=== PATIENT | male | born 1950 | race Caucasian/White ===

== ENCOUNTER 2016-05-30 12:04 | Inpatient (IN) | payer MEDICARE ==
[~2016-05-30] VITALS: Ht 177.8 cm; Wt 76.0 kg
[2016-05-30] MEDS ORDERED: SODIUM CHLORIDE 0.9% 1,000 ML IV ONE (13:19)
[2016-05-30] MEDS ORDERED: ONDANSETRON 2MG/ML, 2ML IVPush ONE (13:30)
[2016-05-30] MEDS ORDERED: SODIUM CHLORIDE 0.9% 1,000ML IVBOLUS ONE (13:30)
[2016-05-30] MEDS ORDERED: SODIUM CHLORIDE FLUSH 10ML SYR IVF ONE (13:30)
[2016-05-30 13:54] LABS: HEMOGLOBIN 14.7 g/dL (13.7-18.0)
[2016-05-30 14:00] LABS: BLOOD UREA NITROGEN 7 mg/dL (7-18)
[2016-05-30 14:03] LABS: ASPARTATE AMINO TRANSFERASE 22 U/L (15-37)
[2016-05-30] MEDS ORDERED: ONDANSETRON 2MG/ML, 2ML ONE ×2 (14:37→19:43)
[2016-05-30] MEDS ORDERED: HYDROmorphone 1 MG/ML, 1ML ONE ×2 (14:37→15:18)
[2016-05-30] MEDS: HYDROmorphone 1 MG/ML, 1ML IVPush PRN ×2 (14:43→16:01)
[2016-05-30] MEDS ORDERED: OMNIPAQUE 350 MG/ML, 100ML BOTTLE ONE (15:53)
[2016-05-30] MEDS ORDERED: METRONIDAZOLE PMX 500MG/100ML 100 ML IV ONE (16:30)
[2016-05-30] MEDS ORDERED: AMPICILLIN/SULBACTAM 3 GM in SODIUM CHLORIDE 0.9% 100 ML IV ONE (16:30)
[2016-05-30] MEDS ORDERED: LOSA25TA5 PO (16:31)
[2016-05-30] MEDS ORDERED: METRONIDAZOLE PMX 500MG/100ML 100 ML ONE (16:33)
[2016-05-30] MEDS ORDERED: TERA5CAP3 PO (16:43)
[2016-05-30] MEDS ORDERED: ATOR80TA75 PO (16:43)
[2016-05-30] MEDS ORDERED: ACETAMINOPHEN 325 MG TABLET PO PRN ×3 (18:00→22:30)
[2016-05-30] MEDS ORDERED: HYDROmorphone 1 MG/ML, 1ML IV PRN ×2 (18:00→20:00)
[2016-05-30] MEDS ORDERED: hydrALAzine 20 MG/ML, 1ML IV PRN ×2 (18:00→20:00)
[2016-05-30] MEDS ORDERED: ONDANSETRON 2MG/ML, 2ML IVPush PRN ×3 (18:00→22:30)
[2016-05-30] MEDS ORDERED: FENTANYL PF 100 MCG/2ML IV PRN ×2 (18:00→20:00)
[2016-05-30] MEDS ORDERED: OXYcodone 5 MG/5 ML ORAL.SOL UDC PO PRN ×2 (18:00→20:00)
[2016-05-30] MEDS ORDERED: PROMETHAZINE 25 MG/ML, 1ML IV PRN ×2 (18:00→20:00)
[2016-05-30] MEDS ORDERED: METOPROLOL 1 MG/ML, 5ML IV PRN ×2 (18:00→20:00)
[2016-05-30] MEDS ORDERED: EPHEDRINE 50 MG/ML, 1ML IVPush PRN ×2 (18:00→20:00)
[2016-05-30] MEDS ORDERED: LABETALOL 5MG/ML, 20ML IV PRN ×2 (18:00→20:00)
[2016-05-30] MEDS ORDERED: FENTANYL PF 250 MCG/5ML ONE ×2 (19:27→20:28)
[2016-05-30] MEDS ORDERED: BUPIVACAINE/PF-EPI 0.5% 1:200K ONE (19:30)
[2016-05-30] MEDS ORDERED: NEOSTIGMINE 1 MG/ML, 10ML ONE (19:43)
[2016-05-30] MEDS ORDERED: ROCURONIUM 10 MG/ML ONE (19:43)
[2016-05-30] MEDS ORDERED: PROPOFOL 10 MG/ML, 50ML ONE (19:43)
[2016-05-30] MEDS ORDERED: SUCCINYLCHOLINE 20 MG/ML, 10ML ONE (19:43)
[2016-05-30] MEDS ORDERED: GLYCOPYRROLATE 0.2MG/1ML ONE (19:43)
[2016-05-30] MEDS ORDERED: LIDOCAINE 1%, 20ML ONE (19:43)
[2016-05-30] MEDS ORDERED: KETOROLAC 30 MG/1 ML ONE (19:43)
[2016-05-30] MEDS ORDERED: MAGNESIUM SULFATE 1 GM/2 ML ONE (19:59)
[2016-05-30] MEDS ORDERED: METOCLOPRAMIDE 5 MG/ML, 2ML IV PRN (20:00)
[2016-05-30] MEDS ORDERED: FENTANYL PF 100 MCG/2ML ONE (20:52)
[2016-05-30] MEDS ORDERED: ACETAMINOPHEN 650 MG/20.3 ML UDC ONE (20:52)
[2016-05-30] MEDS ORDERED: OXYcodone 5 MG/5 ML ORAL.SOL UDC ONE (20:52)
[2016-05-30] MEDS ORDERED: hydrALAzine 20 MG/ML, 1ML ONE (21:23)
[2016-05-30 22:04] VITALS: BP 149/84
[2016-05-30] MEDS ORDERED: ONDANSETRON ODT 4 MG PO PRN (22:30)
[2016-05-30] MEDS: SODIUM CHLORIDE 0.9% 1,000 ML IV SCH (23:23)
[2016-05-30] MEDS: PIPERACILLIN/TAZO/PMX 4.5GM 100 ML IV SCH (23:23)
[2016-05-30 23:35] VITALS: BP 143/95
[2016-05-31] MEDS: OXYcodone IR 5MG TABLET PO PRN ×4 (01:03→15:59)
[2016-05-31 03:38] VITALS: BP 117/85
[2016-05-31] MEDS: PIPERACILLIN/TAZO/PMX 4.5GM 100 ML IV SCH ×4 (04:06→22:57)
[2016-05-31] MEDS: morphine SULFATE 10 MG/ML, 1ML IVPush PRN ×2 (04:07→04:37)
[2016-05-31] MEDS: SODIUM CHLORIDE 0.9% 1,000 ML IV SCH ×3 (06:37→22:57)
[2016-05-31 08:00] VITALS: BP 150/91
[2016-05-31] MEDS: TAMSULOSIN 0.4 MG CAP.ER.24H PO SCH ×2 (12:15→22:02)
[2016-05-31 15:23] VITALS: BP 163/84
[2016-05-31 18:45] VITALS: BP 127/73
[2016-05-31] MEDS: HYDROcodone/APAP 5/325 TABLET PO PRN (20:05)
[2016-05-31] MEDS: ATORVASTATIN 40 MG TABLET PO SCH (22:02)
[2016-06-01 01:19] VITALS: BP 124/70
[2016-06-01] MEDS: HYDROcodone/APAP 5/325 TABLET PO PRN ×3 (01:19→21:12)
[2016-06-01] MEDS: PIPERACILLIN/TAZO/PMX 4.5GM 100 ML IV SCH ×4 (04:32→21:12)
[2016-06-01 05:00] LABS: HEMOGLOBIN 12.3 g/dL (13.7-18.0)
[2016-06-01] MEDS: OXYcodone IR 5MG TABLET PO PRN ×2 (05:28→10:54)
[2016-06-01] MEDS: SODIUM CHLORIDE 0.9% 1,000 ML IV SCH ×3 (06:44→22:30)
[2016-06-01 07:28] VITALS: BP 102/58
[2016-06-01 07:33] VITALS: BP 156/87
[2016-06-01] MEDS: LOSARTAN 25MG TABLET PO SCH (08:14)
[2016-06-01] MEDS: TAMSULOSIN 0.4 MG CAP.ER.24H PO SCH (08:15)
[2016-06-01] MEDS: TERAZOSIN 5MG CAPSULE PO SCH (08:16)
[2016-06-01 14:53] VITALS: BP 148/71
[2016-06-01 20:18] VITALS: BP 154/85
[2016-06-01] MEDS: ATORVASTATIN 40 MG TABLET PO SCH (21:11)
[2016-06-02 02:41] VITALS: BP 147/82
[2016-06-02] MEDS: HYDROcodone/APAP 5/325 TABLET PO PRN (04:04)
[2016-06-02] MEDS: PIPERACILLIN/TAZO/PMX 4.5GM 100 ML IV SCH ×4 (04:05→22:44)
[2016-06-02] MEDS: SODIUM CHLORIDE 0.9% 1,000 ML IV SCH ×3 (05:42→22:30)
[2016-06-02 07:08] VITALS: BP 135/82
[2016-06-02] MEDS: TERAZOSIN 5MG CAPSULE PO SCH (09:00)
[2016-06-02] MEDS: TAMSULOSIN 0.4 MG CAP.ER.24H PO SCH (09:31)
[2016-06-02] MEDS: LOSARTAN 25MG TABLET PO SCH (09:32)
[2016-06-02] MEDS: OXYcodone IR 5MG TABLET PO PRN ×3 (10:59→20:26)
[2016-06-02 13:11] VITALS: BP 146/89
[2016-06-02 20:08] VITALS: BP 145/81
[2016-06-02] MEDS: ATORVASTATIN 40 MG TABLET PO SCH (20:26)
[2016-06-03 03:34] VITALS: BP 127/70
[2016-06-03 05:09] LABS: HEMOGLOBIN 13.3 g/dL (13.7-18.0)
[2016-06-03] MEDS: SODIUM CHLORIDE 0.9% 1,000 ML IV SCH (06:30)
[2016-06-03] MEDS: PIPERACILLIN/TAZO/PMX 4.5GM 100 ML IV SCH (06:46)
[2016-06-03 06:50] VITALS: BP 114/67
[2016-06-03 06:55] VITALS: BP 165/87
[2016-06-03] MEDS: LOSARTAN 25MG TABLET PO SCH (09:54)
[2016-06-03] MEDS: TAMSULOSIN 0.4 MG CAP.ER.24H PO SCH (09:56)
[2016-06-03] MEDS: TERAZOSIN 5MG CAPSULE PO SCH (09:57)
[2016-06-03 11:12] VITALS: BP 150/89
[2016-06-03] MEDS ORDERED: PNEUMOCOCCAL 23 VACCINE IM-VACC ONE (11:30)
[2016-06-03] MEDS ORDERED: OXYC5CAP4 PO (13:26)
[2016-06-03] MEDS ORDERED: AMOX1TAB61 PO (13:27)
== END 2016-06-03 13:34 | disposition home or self-care (01) | DRG 339 ==
LOC: ED 13:51 → EDIP 16:27 → 4NOR 21:52 → DCLOUNGE 06-03 13:11
PROVIDERS: ADMIT Surgery; ATTEND Surgery
PROC: 0W9F4ZZ Drainage of Abdominal Wall, Percutaneous Endoscopic Approach (ICD-10-PCS; 2016-05-30)
PROC: 0T9B70Z Drainage of Bladder with Drainage Device, Via Natural or Artificial Opening (ICD-10-PCS; 2016-05-30)
PROC: 0DTJ4ZZ Resection of Appendix, Percutaneous Endoscopic Approach (ICD-10-PCS; principal; 2016-05-30 19:30)
DX: K35.3 Acute appendicitis with localized peritonitis (principal); K56.7 Ileus, unspecified; K66.0 Peritoneal adhesions (postprocedural) (postinfection); I10 Essential (primary) hypertension; K66.8 Other specified disorders of peritoneum; R33.9 Retention of urine, unspecified; Z96.649 Presence of unspecified artificial hip joint; Z23 Encounter for immunization
CPT/HCPCS: 36415; 74177; 80053; 81003; 83690; 85025; 87070; 87075; 87102; 87116; 87205; 87206; 88304; 90732; 93005; 96361; 96374; 96375; J1170; J1885; J2405; J2543; J2704; J2710; J3010; J3475; J3490; Q9967; J0330; J0360; J2270; J7030

== ENCOUNTER 2017-02-11 12:39 | Emergency (ER) | payer MEDICARE ==
[~2017-02-11] VITALS: Ht 177.8 cm; Wt 78.6 kg
[~2017-02-11 12:39] MED LIST: AMOX1TAB61 PO; ATOR-2 PO; LOSA25TA5 PO; OXYC5CAP2 PO; TERA5CAP3 PO
[2017-02-11] MEDS ORDERED: SODIUM CHLORIDE 0.9% 1,000ML IVBOLUS ONE (13:30)
[2017-02-11] MEDS ORDERED: SUMATRIPTAN 6MG/0.5ML SQ ONE ×2 (13:30→13:51)
[2017-02-11] MEDS ORDERED: DIPHENHYDRAMINE 50 MG/ML, 1ML IVPush ONE (13:30)
[2017-02-11] MEDS ORDERED: METOCLOPRAMIDE 5 MG/ML, 2ML IVPush ONE (13:30)
[2017-02-11] MEDS ORDERED: SODIUM CHLORIDE FLUSH 10ML SYR IVF ONE (13:30)
[2017-02-11] MEDS ORDERED: KETOROLAC 30 MG/1 ML IVPush ONE (13:30)
[2017-02-11] MEDS ORDERED: LOSARTAN 25MG TABLET PO SCH (13:45)
[2017-02-11] MEDS ORDERED: DIPHENHYDRAMINE 50 MG/ML, 1ML ONE (13:51)
[2017-02-11] MEDS ORDERED: KETOROLAC 30 MG/1 ML ONE (13:51)
[2017-02-11] MEDS ORDERED: METOCLOPRAMIDE 5 MG/ML, 2ML ONE (13:52)
[2017-02-11 13:57] LABS: BLOOD UREA NITROGEN 11 mg/dL (7-18)
[2017-02-11 15:33] VITALS: BP 146/87
== END 2017-02-11 15:37 | disposition home or self-care (01) ==
LOC: ED 15:30
DX: G43.901 Migraine, unspecified, not intractable, with status migrainosus (principal); I10 Essential (primary) hypertension; E78.5 Hyperlipidemia, unspecified; Z96.649 Presence of unspecified artificial hip joint
CPT/HCPCS: 36415; 80048; 93005; 96361; 96372; 96374; 96375; 99285; J1200; J1885; J2765; J3030; J7030

== ENCOUNTER 2018-03-19 15:10 | Emergency (ER) | payer MEDICARE ==
[~2018-03-19] VITALS: Ht 175.3 cm; Wt 80.8 kg
[~2018-03-19 15:10] MED LIST changes: +LOSA25TA25 PO; -LOSA25TA5 PO
[2018-03-19] MEDS ORDERED: KETOROLAC 30 MG/1 ML IVPush ONE (15:30)
[2018-03-19] MEDS ORDERED: SODIUM CHLORIDE FLUSH 10ML SYR IVF ONE (15:30)
[2018-03-19] MEDS ORDERED: SODIUM CHLORIDE 0.9% 1,000ML IVBOLUS ONE (15:30)
[2018-03-19] MEDS ORDERED: PROCHLORPERAZINE 5 MG/ML, 2ML IVPush ONE (15:30)
[2018-03-19 16:07] LABS: BASOPHILS # (AUTO) 0.04 x10^3/uL (0-0.1); BASOPHILS % (AUTO) 1 % (0-1); EOSINOPHILS # (AUTO) 0.18 x10^3/uL (0-0.4); EOSINOPHILS % (AUTO) 3 % (1-7); LYMPHOCYTES # (AUTO) 2.17 x10^3/uL (1-3.4); LYMPHOCYTES % (AUTO) 31 % (22-44); MD NO; MEAN CORPUSCULAR HEMOGLOBIN 29.3 pg (27.5-34.5); MEAN CORPUSCULAR HGB CONC 33.5 g/dL (33.2-36.2); MEAN CORPUSCULAR VOLUME 87.6 fL (81-97); MEAN PLATELET VOLUME 8.1 fL (7.4-10.4); MONOCYTES # (AUTO) 0.69 x10^3/uL (0.2-0.8); MONOCYTES % (AUTO) 10 % (2-9); NEUTROPHILS # (AUTO) 4.02 x10^3/uL (1.8-6.8); NEUTROPHILS % (AUTO) 57 % (42-75); PLATELET COUNT 286 x10^3/uL (130-400); RED BLOOD COUNT 5.45 x10^6/uL (4.38-5.82); RED CELL DISTRIBUTION WIDTH 14.6 % (9.4-14.8)
[2018-03-19 16:15] LABS: ALBUMIN 3.7 g/dL (3.4-5.0); ANION GAP 7 mmol/L (5-15); CALCIUM 8.8 mg/dL (8.5-10.1); CHLORIDE 109 mmol/L (98-107)
[2018-03-19 16:19] LABS: ALANINE AMINOTRANSFERASE 42 U/L (12-78); ALKALINE PHOSPHATASE 90 U/L (45-117); BILIRUBIN,TOTAL 0.7 mg/dL (0.2-1.0); CREATININE 0.84 mg/dL (0.7-1.3); TOTAL PROTEIN 7.4 g/dL (6.4-8.2)
[2018-03-19] MEDS ORDERED: PROCHLORPERAZINE 5 MG/ML, 2ML ONE (16:21)
[2018-03-19] MEDS ORDERED: ONDANSETRON ODT 4 MG ONE (16:21)
[2018-03-19] MEDS ORDERED: KETOROLAC 30 MG/1 ML ONE (16:21)
[2018-03-19] MEDS ORDERED: ONDANSETRON ODT 4 MG PO ONE (16:30)
[2018-03-19 17:21] VITALS: BP 175/105
== END 2018-03-19 18:55 | disposition home or self-care (01) ==
LOC: ED 18:23
DX: G43.909 Migraine, unspecified, not intractable, without status migrainosus (principal); I10 Essential (primary) hypertension; F41.1 Generalized anxiety disorder; E78.5 Hyperlipidemia, unspecified; Z87.891 Personal history of nicotine dependence
CPT/HCPCS: 36415; 80053; 85025; 87081; 87880; 96374; 96375; 99283; J0780; J1885; J7030; Q0162